=== PATIENT | male | born 1965 | race Caucasian/White ===

== ENCOUNTER 2022-06-10 14:00 | Outpatient (CLI) | payer OTHER, SELFPAY ==
--- OUTSIDE RECORDS SUMMARY | 2022-06-10 14:03 | XMS_ITS | Clinical Summary ---
:1965 Author Organization [facility] [place] [address] Care Team Providers Name Role Phone Ana LauraModesta JERARDO Primary Care Provider Terrance Villalta MD Unavailable Allergies No known active allergies Medications Medication Sig Dispensed Refills Start Date End Date Status multivitamin (MVI) Take 1 tablet by 0 01/30/2012 Active tabletIndications: mouth once daily. Anemia, unspecified lisinopril (PRINIVIL; TAKE 1 TABLET BY 30 tablet 0 01/09/2016 Active ZESTRIL) 20 mg MOUTH EVERY DAY tabletIndications: HTN (hypertension) Active Problems Problem Noted Date LFT elevation 12/19/2014 Tobacco dependence 10/11/2013 Overview: chew HTN (hypertension) 10/08/2013 Other and unspecified hyperlipidemia 12/14/2006 Immunizations Name Administration Dates Next Due Tdap 08/17/2012 Family History Medical History Relation Name Comments Diabetes Father Heart Disease Father AL age 46 Hypertension Father Relation Name Status Comments Father Social History Tobacco Use Types Packs/Day Years Used Date Never Smoker Smokeless Tobacco: Current User Chew Tobacco Cessation: Ready to Quit: Yes; C ounseling Given: Yes Comments: pt cutting back Alcohol Use Standard Drinks/Week Comments Yes 0 (1 standard drink = 0.6 oz pure approx imately 12 drinks/week Has hx alcohol) DWI x3 family focus 1998 Alcohol Habits Answer Date Recorded How often do you have a drink Not asked containing alcohol? How many drinks containing alcohol Not asked do you have on a typical day when you are drinking? How often do you have six or more Not asked drinks on one occasion? Comment: approximately 12 drinks/week Has hx 11/21 DWI x3 family [facility] 1998 Sex Assigned at Date Recorded Not on file Obstetrics History Last Filed Vital Signs Vital Sign Reading Time Taken Comments Blood Pressure 134/82 02/12/2017 9:10 AM CDT Pulse 80 02/12/2017 9:10 AM CDT Temperature 36.9 ??C (98.4 ??F) 12/04/2008 9:01 AM CDT Respiratory Rate 16 02/12/2017 9:10 AM CDT Oxygen Saturation - - Inhaled Oxygen Concentration - - Weight 98.5 kg (217 lb 3.2 oz) 02/12/2017 9:10 AM CDT Height 175.3 cm (5' 9) 01/25/2012 6:49 PM CDT Body Mass Index 32.07 01/25/2012 6:49 PM CDT Plan of Treatment Health Maintenance Due Date Last Done Comments COVID-19 vaccine series (#1) 1965 Depression screening for age 12+ 1979 BMI (ht and wt on same day) for age 0905/17/1985 18+ Colonoscopy through age 75 2012 Zoster (shingles) series for age 50+ 2017 (1 of 2) Lipids for age 45-75 12/19/2019 12/18/2014, 10/11/2013, 12/14/2006 Influenza for age 50-64 04/21/2022 Tetanus booster 08/17/2022 08/17/2012 Tdap Completed 08/17/2012 Hepatitis C screening for age 18-79 Completed 12/18/2014 Results Not on filefrom Last 3 Months Care Teams Inspector And Sorter Relationship Specialty Start Date End Date Modesta Du NP PCP - General 08/17/12 [address] [place] [address] Terrance Villalta MD Family Practice 03/29/12
[2022-06-10 17:03] LABS: Chloride* 102 mmol/L (96-114); Sodium* 138 mmol/L (135-149)
[2022-06-10 17:04] LABS: Potassium* 4.7 mmol/L (3.6-5.1)
[2022-06-10 17:06] LABS: Blood Urea Nitrogen* 16 mg/dL (7-30); Carbon Dioxide* 29 mmol/L (20-32); Estimated Glomerular Filt Rate 89 ml/min
[2022-06-10 17:07] LABS: Calcium* 9.7 mg/dL (8.4-10.6); Glucose* 104 mg/dL (60-115)
== END 2022-06-10 14:01 | disposition home or self-care (01) ==
PROVIDERS: PCP Family Medicine; Visit Provider Family Medicine
DX: I10 Essential (primary) hypertension (principal); E03.9 Hypothyroidism, unspecified; Z12.5 Encounter for screening for malignant neoplasm of prostate
CPT/HCPCS: 80048; 84153; 84443